=== PATIENT | female | born 1990 | race Caucasian/White ===

== ENCOUNTER → 2017-04-08 13:22 | Outpatient (CLI) | payer OTHER ==
[~2017-04-08] VITALS: Ht 152.4 cm; Wt 95.3 kg
[~2017-04-08 13:22] MED LIST: ACYCLOVIR800 MG PO; ALBUTEROL0.63 MG/3; SYMBICORT 80/10.2 GM
== END | disposition home or self-care (01) ==
LOC: PPHC 13:22
DX: J45.20 Mild intermittent asthma, uncomplicated (principal)

== ENCOUNTER 2018-10-17 10:20 | Outpatient (CLI) | payer OTHER | END 2018-10-17 12:42 | disposition home or self-care (01) | LOC: SONOGRAMA 10:20 | DX: E04.1 Nontoxic single thyroid nodule (principal) ==

== ENCOUNTER 2022-03-30 10:33 | Outpatient (CLI) | payer OTHER | END 2022-03-30 10:35 | disposition home or self-care (01) | LOC: LAB 10:33 | DX: Z20.822 Contact with and (suspected) exposure to COVID-19 (principal) ==

== ENCOUNTER 2022-06-08 12:58 | Emergency (ER) | payer OTHER ==
[~2022-06-08] VITALS: Ht 165.1 cm; Wt 80.7 kg
[2022-06-08] MEDS ORDERED: COZAAR25 MG PO (13:11)
[2022-06-08] MEDS ORDERED: LEVSIN/SL0.125 MG SL (15:55)
[2022-06-08] MEDS ORDERED: PEPCID AC20 MG PO (15:55)
[2022-06-08] MEDS ORDERED: ZOFRAN8 MG PO (15:55)
== END 2022-06-08 16:15 | disposition home or self-care (01) ==
LOC: ER 12:58
DX: K52.9 Noninfective gastroenteritis and colitis, unspecified (principal)

== ENCOUNTER 2022-07-04 19:48 | Emergency (ER) | payer OTHER ==
[~2022-07-04] VITALS: Ht 162.6 cm; Wt 102.1 kg
[~2022-07-04 19:48] MED LIST changes: +COZAAR25 MG PO; +LEVSIN/SL0.125 MG SL; +PEPCID AC20 MG PO; +ZOFRAN8 MG PO
[2022-07-04] MEDS ORDERED: COZAAR25 MG PO (20:15)
== END 2022-07-04 22:23 | disposition home or self-care (01) ==
LOC: ER 19:48
DX: S93.491A Sprain of other ligament of right ankle, initial encounter (principal); S93.401A Sprain of unspecified ligament of right ankle, initial encounter